=== PATIENT | male | born 1975 | race Two or more races ===

== ENCOUNTER → 2020-01-18 | Outpatient (CLI) | payer BC ==
--- NOTE | 2020-01-18 14:23 | EST ---
EXERCISE STRESS AGE: 44 SEX: M HT: 6'3" WT: 356 lbs. PROTOCOL: Ede STAGE: 3 DURATION OF EXERCISE: 9:00 HEART RATE REST: 61 BLOOD PRESSURE REST: 134/88 MAXIMUM HEART RATE ACHIEVED: 154 MAXIMUM BLOOD PRESSURE: 211/91 85% MPHR: 149 100% MPHR: 175 METS: 10.5 INDICATIONS: Chest pain. INDICATION: Chest pain. Baseline EKG shows sinus rhythm, normal axis, normal intervals. Patient exercised on Ede protocol for a total of 9 minutes achieving 10 METS, 88% of predicted maximal heart rate without chest pain or diagnostic ST-segment depression. CONCLUSIONS: 1. Good exercise tolerance. 2. Negative stress test by EKG. MMODL / IJN: [id number] /
== END | disposition home or self-care (01) ==
LOC: RADNMMAIN 08:22
PROVIDERS: ATTEND Family Medicine
DX: R07.89 Other chest pain (principal)
CPT/HCPCS: 93017

== ENCOUNTER 2020-02-23 19:44 | Emergency (ER) | payer BC ==
--- NOTE | 2020-02-23 20:11 | ED ---
Abdominal Pain HPI - General Chief Complaint: Abdominal Pain Stated Complaint: Abdominal Pain Time Seen by Provider: 02/23/20 19:53 Source: patient Mode of arrival: ambulatory Limitations: no limitations - History of Present Illness Initial Comments: Patient is a 44-year-old male with history of diverticulosis and IBS presenting to emergency Department with chief complaint of abdominal pain. Patient reports the pain started yesterday but it wasn't significant. Patient states he woke up this morning with increased pain localized to the left lower quadrant. He states throughout the day and moved to repair umbilical region but has dropped back down to left lower quadrant. Patient does report nausea but no vomiting. States he does have occasional hematochezia but that is somewhat normal for him secondary to external hemorrhoids. Patient denies history of abdominal surgeries. States he had a colonoscopy approximately 10 years ago. States he does not take any medication for IBS. Denies any night sweats or chills. States he was in urgent care. Her tetanus and there was a concern for diverticulitis. Patient denies hematuria, penile discharge, testicular pain or tenderness. He denies any back pain. Denies any chest pain or shortness of breath. - Related Data Home Medications Medication Instructions Recorded Confirmed Citalopram Hydrobromide [CeleXA] 20 mg PO DAILY 02/23/20 02/23/20 Mometasone Inhalr 220 Mcg/Puff 1 puff INHALATION RT-BID PRN 02/23/20 02/23/20 [Asmanex] Unknown Antacid (Unknown 1 tab PO ONCE PRN 02/23/20 02/23/20 Name/Strength) Previous Rx's Medication Instructions Recorded Amoxicillin/Potassium Clav 1 tab PO Q12HR #28 tab 02/23/20 [Augmentin 875-125 Tablet] Ondansetron Odt [Zofran Odt] 4 mg PO Q8HR PRN #10 tab 02/23/20 Allergies Allergy/AdvReac Type Severity Reaction Status Date / Time No Known Allergies Allergy Verified 02/23/20 21:37 Review of Systems ROS Statement: Those systems with pertinent positive or pertinent negative responses have been documented in the HPI. ROS Other: All systems not noted in ROS Statement are negative. Past Medical History Past Medical History: Hypertension Additional Past Medical History / Comment(s): spontaneous pneumothorax History of Any Multi-Drug Resistant Organisms: None Reported Additional Past Surgical History / Comment(s): vasectomy Past Psychological History: Anxiety Smoking Status: Never smoker Past Alcohol Use History: Occasional Past Drug Use History: None Reported General Exam Limitations: no limitations General appearance: alert, in no apparent distress, obese Head exam: Present: atraumatic, normocephalic, normal inspection Eye exam: Present: normal appearance, PERRL, EOMI Pupils: Present: normal accommodation ENT exam: Present: normal exam, normal oropharynx, mucous membranes moist, TM's normal bilaterally, normal external ear exam Neck exam: Present: normal inspection, full ROM. Absent: tenderness Respiratory exam: Present: normal lung sounds bilaterally. Absent: respiratory distress, wheezes Cardiovascular Exam: Present: regular rate, normal rhythm, normal heart sounds GI/Abdominal exam: Present: soft, tenderness (Left lower quadrant tenderness.). Absent: distended, guarding, rebound, rigid, bruit, pulsatile mass, hernia Extremities exam: Present: normal inspection, full ROM. Absent: tenderness Back exam: Present: normal inspection, full ROM. Absent: tenderness, CVA tenderness (R), CVA tenderness (L) Neurological exam: Present: alert, oriented X3, normal gait Psychiatric exam: Present: normal affect, normal mood Skin exam: Present: warm, dry, intact, normal color. Absent: rash Course Vital Signs 02/23/20 02/23/20 19:45 22:43 Temperature 98.2 F 97.5 F L Pulse Rate 79 68 Respiratory 20 18 Rate Blood Pressure 147/82 135/84 O2 Sat by Pulse 96 96 Oximetry Medical Decision Making - Medical Decision Making Patient is a 44-year-old male with history of IBS and diverticulosis presenting to emergency Department with a chief complaint of abdominal pain. On exam patient does appear to have left lower quadrant abdominal pain. No signs of a hernia. He does have a mild white count. Patient was given antiemetics, fluids and analgesia. CT of abdomen and pelvis reveals proximal sigmoid diverti culitis. Patient started on Augmentin in the emergency department. Patient is tolerating orals well. Vitals are stable. Patient will be discharged with a 14 day course of antibiotics. Patient advised about the importance of following up proper diet for diverticulitis. Patient also discharged with Zofran. Return parameters were thoroughly discussed with patient is understanding and agreeable . Case discussed with physician. - Lab Data Result diagrams: 02/23/20 20:46 02/23/20 20:46 Lab Results 02/23/20 02/23/20 02/23/20 Range/Units 20:46 20:46 20:46 WBC 12.0 H (3.8-10.6) k/uL RBC 5.08 (4.30-5.90) m/uL Hgb 15.0 (13.0-17.5) gm/dL Hct 45.8 (39.0-53.0) % MCV 90.0 (80.0-100.0) fL MCH 29.5 (25.0-35.0) pg MCHC 32.8 (31.0-37.0) g/dL RDW 13.5 (11.5-15.5) % Plt Count 241 (150-450) k/uL Neutrophils % 69 % Lymphocytes % 21 % Monocytes % 5 % Eosinophils % 2 % Basophils % 1 % Neutrophils # 8.3 H (1.3-7.7) k/uL Lymphocytes # 2.5 (1.0-4.8) k/uL Monocytes # 0.6 (0-1.0) k/uL Eosinophils # 0.3 (0-0.7) k/uL Basophils # 0.1 (0-0.2) k/uL Sodium 135 L (137-145) mmol/L Potassium 4.2 (3.5-5.1) mmol/L Chloride 101 (98-107) mmol/L Carbon Dioxide 25 (22-30) mmol/L Anion Gap 9 mmol/L BUN 11 (9-20) mg/dL Creatinine 1.01 (0.66-1.25) mg/dL Est GFR (CKD-EPI)AfAm >90 (>60 ml/min/1.73 sqM) Est GFR (CKD-EPI)NonAf 90 (>60 ml/min/1.73 sqM) Glucose 95 (74-99) mg/dL Calcium 9.4 (8.4-10.2) mg/dL Total Bilirubin 1.0 (0.2-1.3) mg/dL AST 19 (17-59) U/L ALT 22 (4-49) U/L Alkaline Phosphatase 66 (38-126) U/L Total Protein 7.2 (6.3-8.2) g/dL Albumin 4.7 (3.5-5.0) g/dL Lipase 30 (23-300) U/L Urine Color Yellow Urine Appearance Clear (Clear) Urine pH 7.0 (5.0-8.0) Ur Specific [place] 1.014 (1.001-1.035) Urine Protein Negative (Negative) Urine Glucose (UA) Negative (Negative) Urine Ketones Negative (Negative) Urine Blood Negative (Negative) Urine Nitrite Negative (Negative) Urine Bilirubin Negative (Negative) Urine Urobilinogen <2.0 (<2.0) mg/dL Ur Leukocyte Esterase Negative (Negative) - EKG Data EKG Comments: Sinus rhythm. No ST changes. Ventricular rate 68, CT 142, QRS 90, QTc 425. Disposition Clinical Impression: Abdominal pain, Diverticulitis Disposition: HOME SELF-CARE Condition: Good Instructions (If sedation given, give patient instructions): Diverticulitis (ED), Diverticulitis Diet (ED) Additional Instructions: Take prescribed medication as directed. Follow proper diet. Return to emergency department if symptoms worsen. Prescriptions: Amoxicillin/Potassium Clav [Augmentin 875-125 Tablet] 1 tab PO Q12HR #28 tab Ondansetron Odt [Zofran Odt] 4 mg PO Q8HR PRN #10 tab PRN Reason: Nausea Is patient prescribed a controlled substance at d/c from ED?: No Referrals: Tonia Harris DO [Primary Care Provider] - 1-2 days Time of Disposition: 22:17
[2020-02-23] MEDS ORDERED: SODIUM CHLORIDE 0.9% 1,000 ML IV STA (20:13)
[2020-02-23] MEDS ORDERED: ONDANSETRON 4 MG/2 ML VIAL IVP STA (20:13)
[2020-02-23] MEDS ORDERED: KETOROLAC 30 MG/ML 1 ML VIAL IVP STA (20:13)
[2020-02-23 21:01] LABS: Basophils # (A) 0.1 k/uL (0-0.2); Basophils % (A) 1 %; Eosinophils # (A) 0.3 k/uL (0-0.7); Eosinophils % (A) 2 %; HCT 45.8 % (39.0-53.0); Lymphocytes # (A) 2.5 k/uL (1.0-4.8); Lymphocytes % (A) 21 %; MCH 29.5 pg (25.0-35.0); MCHC 32.8 g/dL (31.0-37.0); Mean Platelet Volume 7.2; Monocytes # (A) 0.6 k/uL (0-1.0); Monocytes % (A) 5 %; Neutrophils # (A) 8.3 k/uL (1.3-7.7); Neutrophils % (A) 69 %; Platelet Count 241 k/uL (150-450); RBC 5.08 m/uL (4.30-5.90); RDW 13.5 % (11.5-15.5)
[2020-02-23 21:02] LABS: Appearance,Urine Clear (Clear); Bilirubin,Urine Negative (Negative); Blood,Urine Negative (Negative); Color,Urine Yellow; Glucose,Urine (UA) Negative (Negative); Ketones,Urine Negative (Negative); Leukocyte Esterase,Urine Negative (Negative); Nitrite,Urine Negative (Negative); Protein,Urine Negative (Negative); Specific Gravity,Urine 1.014 (1.001-1.035); Urobilinogen,Urine <2.0 mg/dL (<2.0)
[2020-02-23 21:12] LABS: ALT 22 U/L (4-49); AST 19 U/L (17-59); African American GFR (CKD) >90 (>60 ml/min/1.73 sqM); Albumin 4.7 g/dL (3.5-5.0); Alkaline Phosphatase 66 U/L (38-126); Anion Gap 9 mmol/L; Blood Urea Nitrogen 11 mg/dL (9-20); Calcium 9.4 mg/dL (8.4-10.2); Carbon Dioxide 25 mmol/L (22-30); Chloride 101 mmol/L (98-107); Glucose 95 mg/dL (74-99); Non-African American GFR(CKD) 90 (>60 ml/min/1.73 sqM); Potassium 4.2 mmol/L (3.5-5.1); Sodium 135 mmol/L (137-145); Total Protein 7.2 g/dL (6.3-8.2)
--- NOTE | 2020-02-23 22:05 | CT ---
EXAMINATION TYPE: CT abdomen pelvis w con DATE OF EXAM: 02/23/2020 COMPARISON: None HISTORY: Abdominal pain CT DLP: 3262.4 mGycm Automated exposure control for dose reduction was used. CONTRAST: Performed with IV Contrast, patient injected with 100 mL of Isovue 300. Images obtained from the diaphragm to the floor the pelvis with IV contrast. Lung bases are clear. There is no pleural effusion. Heart size is normal. There is no pericardial eff usion. Liver spleen pancreas stomach gallbladder appear normal. Bile ducts are not dilated. There is no adrenal mass. Kidneys show satisfactory contrast opacification. There is no hydronephrosi s. There is 2.5 cm cortical cyst lateral left kidney. Ureters are not dilated. There is no retroperit trinh adenopathy. Bladder distends smoothly. There is no inguinal hernia. There is wall thickening and fat stranding around the proximal sigmoid colon. There are multiple sigm oid diverticula. There is some fat stranding and fluid in the left paracolic gutter. Appendix is late ral and appears normal. There is no evidence of a bowel obstruction. There is no sign of free air. There is small umbilical h ernia that contains fat. Lumbar vertebra have normal spacing and alignment. The posterior elements are intact. Bony pelvis is intact. IMPRESSION: Inflammatory changes around the proximal sigmoid colon consistent with acute diverticulitis. No drain able fluid collection.
[2020-02-23] MEDS ORDERED: AMOXIC-POT CLAV 875-125MG 1 EACH TAB PO STA (22:36)
[2020-02-23 22:47] VITALS: BP 135/84; PULSE 68; RESP 18; TEMP 97.5
== END 2020-02-23 22:47 | disposition home or self-care (01) ==
LOC: EC 19:44
DX: K57.32 Diverticulitis of large intestine without perforation or abscess without bleeding (principal); I10 Essential (primary) hypertension; F41.9 Anxiety disorder, unspecified; Z79.899 Other long term (current) drug therapy
CPT/HCPCS: 36415; 93005; 80053; 83690; 85025; 81003; 74177; 99284; 96374; 96375; 96361; J2405; J1885; Q9967

== ENCOUNTER → 2024-01-13 | Outpatient (CLI) | payer BC ==
--- NOTE | 2024-01-13 17:25 | CA ---
Transthoracic Echo Report Name: Marcos Galvan Age: 48 Gender: M : 1975 Exam Date: 01/13/2024 15:14 Exam Location: [facility] Ht (in): 75 Wt (lb): 360 Ordering Physician: Tonia Harris DO Attending/Referring Phys: Yoon Crenshaw [facility] Supervisor [employer] Floridalma Art RDCS Procedure CPT: Indications: I10 HYPERTENSION Cardiac Hx: Technical Quality: Fair Contrast 1: Total Dose (mL): Contrast 2: Total Dose (mL): MEASUREMENTS (Male / Female) Normal Values 2D ECHO LV Diastolic Diameter PLAX 5.1 cm 4.2 - 5.9 / 3.9 - 5.3 cm LV Systolic Diameter PLAX 2.4 cm IVS Diastolic Thickness 1.5 cm 0.6 - 1.0 / 0.6 - 0.9 cm LVPW Diastolic Thickness 1.6 cm 0.6 - 1.0 / 0.6 - 0.9 cm LV Relative Wall Thickness 0.6 RV Internal Dim ED PLAX 2.8 cm LA Systolic Diameter LX 4.3 cm 3.0 - 4.0 / 2.7 - 3.8 cm LV Diastolic Volume MOD BP 100.5 cm??? 67 - 155 / 56 - 104 cm??? LV Systolic Volume MOD BP 54.2 cm??? 22 - 58 / 19 - 49 cm??? LV Ejection Fraction MOD BP 46.1 % >= 55 % LV Diastolic Volume MOD 4C 113.4 cm??? LV Systolic Volume MOD 4C 56.6 cm??? LV Ejection Fraction MOD 4C 50.1 % LV Diastolic Length 4C 7.4 cm LV Systolic Length 4C 7.4 cm LV Diastolic Volume MOD 2C 80.9 cm??? LV Systolic Volume MOD 2C 50.6 cm??? LV Ejection Fraction MOD 2C 37.4 % LV Diastolic Length 2C 8.2 cm LV Systolic Length 2C 7.1 cm LA Volume 78.1 cm??? 18 - 58 / 22 - 52 cm??? LA Volume Index 25.9 cm???/m??? 16 - 28 cm???/m??? M-MODE Aortic Root Diameter MM 3.2 cm LA Systolic Diameter MM 4.3 cm LA Ao Ratio MM 1.3 AV Cusp Separation MM 2.4 cm DOPPLER MV Area PHT 3.1 cm??? Mitral E Point Velocity 69.5 cm/s Mitral A Point Velocity 80.4 cm/s Mitral E to A Ratio 0.9 MV Deceleration Time 241.6 ms TR Peak Velocity 238.1 cm/s TR Peak Gradient 22.7 mmHg Right Ventricular Systolic Press 27.7 mmHg FINDINGS Left Ventricle Left ventricular ejection fraction is estimated at 55-60 %. Moderately increased septal wall thickness. Left ventricular cavity size normal. No obvious regional wall motion abnormalities. Right Ventricle Right ventricle not well visualized. Right ventricular systolic pressure within normal limits. Right Atrium Normal right atrial size. Left Atrium Mildly increased left atrial diameter. Moderately increased left atrial volume. Mitral Valve Structurally normal mitral valve. Trace mitral regurgitation. Aortic Valve Trileaflet aortic valve. No aortic valve stenosis or regurgitation. Tricuspid Valve Structurally normal tricuspid valve. Trace to mild tricuspid regurgitation. Pulmonic Valve Structurally normal pulmonic valve. Trace pulmonic regurgitation. Pericardium No pericardial or pleural effusion. Aorta Normal size aortic root and proximal ascending aorta. CONCLUSIONS Normal LV function left atrial enlargement Previewed by: Dr. Ihsan Vasquez MD (Electronically Signed) Final Date: 13 January 2024 17:24
== END | disposition home or self-care (01) ==
LOC: RADECHMAIN 15:07
PROVIDERS: ATTEND Family Medicine
DX: I11.9 Hypertensive heart disease without heart failure (principal)
CPT/HCPCS: 93306